=== PATIENT | female | born 1980 | race Caucasian/White ===

== ENCOUNTER 2019-01-06 22:52 | Emergency (ER) | payer MEDICAID, OTHER ==
[~2019-01-06] VITALS: Ht 162.6 cm; Wt 115.2 kg
[~2019-01-06 22:52] MED LIST: AUG875; ORTHO TRI CYCLEN PO
[2019-01-06 22:56] VITALS: BP_SYST 150
--- NOTE | 2019-01-07 00:34 | NUR ---
Patient to ER bed [facility] for evaluation. Side rails up. Report given to Yasmeen SWEET.
--- NOTE | 2019-01-07 01:00 | NUR ---
Patient AOx4, ambulatory, presents to ER with complaint of left calf pain 9/10 and cramping x3 days. Patient states she also feels tingling, numbness, coldness to site, and swelling to left foot. Patient states she now feels pinching up all of left leg. Patient states she had C5-C6 neck fusion on 12/02/18. Patient currently on Baclofen and Topamax. No other symptoms or complaints.
--- NOTE | 2019-01-07 01:23 | NUR ---
ER MD Doyle at bedside for medical evaluation.
--- NOTE | 2019-01-07 01:45 | NUR ---
# 22 gauge angiocath placed to left hand. Use of asceptic technique. Opsite placed over site. Blood return noted. Blood for lab drawn from site. Flushed with 10 cc of normal saline. No evidence of infiltration noted. Patient tolerated well.
[2019-01-07 02:26] LABS: INR 0.9 (0.8-1.2)
[2019-01-07 02:29] LABS: CALCIUM 9.2 mg/dL (8.4-11.0); CREATININE 0.88 mg/dL (0.55-1.30); POTASSIUM 3.4 mmol/L (3.5-5.1)
[2019-01-07 02:35] LABS: BASOPHILS # (AUTO) 0.1 K/uL (0.0-0.2); BASOPHILS % (AUTO) 0.5 % (0.0-2.0); EOSINOPHILS # (AUTO) 0.1 K/uL (0.0-0.4); EOSINOPHILS % (AUTO) 0.9 % (0.0-4.0); HEMATOCRIT 40.1 % (36-48); HEMOGLOBIN 12.9 g/dL (12.0-16.0); LYMPHOCYTES # (AUTO) 4.8 K/uL (1.0-5.5); LYMPHOCYTES % (AUTO) 34.8 % (20.5-51.5); MEAN CORPUSCULAR HEMOGLOBIN 29 pg (27-31); MEAN CORPUSCULAR HGB CONC 32 % (32-36); MEAN CORPUSCULAR VOLUME 90 fL (79.0-98.0); MONOCYTES # (AUTO) 0.6 K/uL (0.0-1.0); MONOCYTES % (AUTO) 4.3 % (1.7-9.3); NEUTROPHILS # (AUTO) 8.2 K/uL (1.8-7.7); NEUTROPHILS % (AUTO) 59.5 % (40.0-70.0); PLATELET COUNT (AUTO) 341 K/uL (130-430); RED BLOOD CELL COUNT(AUTO) 4.45 MIL/uL (4.2-6.2); RED CELL DISTRIBUTION WIDTH 15.7 % (9.0-15.0); WHITE BLOOD COUNT (AUTO) 13.9 K/uL (4.8-10.8)
[2019-01-07 02:36] LABS: ALBUMIN 4.1 g/dL (3.4-4.8); TOTAL BILIRUBIN 0.2 mg/dL (0.0-1.0)
[2019-01-07 03:44] VITALS: BP_SYST 132
--- NOTE | 2019-01-07 03:44 | NUR ---
Patient given written and verbal discharge instructions and verbalizes understanding. ER MD discussed with patient the results and treatment provided. Patient in stable condition. ID arm band removed. IV catheter removed intact and dressing applied, no active bleeding. No Rx given. Patient educated on pain management and to follow up with PMD. Pain Scale 2/10 tolerable to patient. Opportunity for questions provided and answered. Medication side effect fact sheet provided.
== END 2019-01-07 03:44 | disposition home or self-care (01) ==
LOC: SED 22:52 → MERGE 22:52 → SED 01-07 03:44
DX: M79.662 Pain in left lower leg (principal); R03.0 Elevated blood-pressure reading, without diagnosis of hypertension; E11.9 Type 2 diabetes mellitus without complications; Z88.1 Allergy status to other antibiotic agents; Z88.8 Allergy status to other drugs, medicaments and biological substances
CPT/HCPCS: 36415; 80053; 82550-TC; 85025; 85610-TC; 85730-TC; 93970; 99284

== ENCOUNTER 2020-06-05 21:15 | Emergency (ER) | payer MEDICAID ==
[~2020-06-05] VITALS: Ht 162.6 cm; Wt 112.0 kg
[2020-06-05 21:15] VITALS: BP_SYST 143
--- NOTE | 2020-06-05 21:20 | NUR ---
Placed in room 3 . Placed on blood pressure machine and pulse oximeter. Side rails up.
--- NOTE | 2020-06-05 21:22 | NUR ---
ER at bedside examining patient.
--- NOTE | 2020-06-05 21:25 | NUR ---
Pt presents to ER c/o L lower extremity pain. Pt reports injury at the gym when pushing weights and hearing a "pop" sound. Pt rates pain 9/10. Denies taking any pain meds. [employer] at the gym wrapped her L calf. Pt reports multiple surgeries to L leg. Pt unable to bear weight on L Leg. Pt reports PMH of PCOS. Allergy to tramadol.
[2020-06-05] MEDS ORDERED: KETOROLAC TROMETHAMINE 30 MG VIAL IM ONE (21:45)
[2020-06-05] MEDS ORDERED: KETOROLAC TROMETHAMINE 30 MG VIAL ONE (21:51)
--- NOTE | 2020-06-05 22:29 | NUR ---
Pt taken to US via wheel chair.
--- NOTE | 2020-06-05 22:45 | NUR ---
Pt back to room 3. stable
--- NOTE | 2020-06-05 23:10 | NUR ---
Pt L leg wrapped w/ santiago bandag. Pt will be given crutches to ambulate.
[2020-06-05] MEDS ORDERED: MOB7.5 PO (23:13)
[2020-06-05] MEDS ORDERED: HYDROcodone/ACETAMIN 5-325 MG TAB (NORCO/ VICODIN) ONE (23:21)
[2020-06-05 23:23] VITALS: BP_SYST 143
--- NOTE | 2020-06-05 23:25 | NUR ---
Patient given written and verbal discharge instructions and verbalizes understanding. ER MD discussed with patient the results and treatment provided. Patient in stable condition. ID arm band removed. Rx of meloxcam given. Patient educated on pain management and to follow up with PMD. Pain Scale 8/10.Medicated prior to D/C Opportunity for questions provided and answered. Medication side effect fact sheet provided.
--- NOTE | 2020-06-05 23:25 | NUR ---
Pt medicated w/ jeanie Escobar MD order in order list.
== END 2020-06-05 23:23 | disposition home or self-care (01) ==
LOC: SED 21:15
DX: M79.662 Pain in left lower leg (principal); E11.9 Type 2 diabetes mellitus without complications; Z88.5 Allergy status to narcotic agent; Z88.1 Allergy status to other antibiotic agents
CPT/HCPCS: 93971; 96372; 99284; J1885